=== PATIENT | female | born 1960 | race Caucasian/White ===

== ENCOUNTER 2022-01-20 08:39 | Day surgery (SDC) | payer OTHER ==
[2022-01-20] MEDS ORDERED: Midazolam 1 MG/ML 2 ML SDV ONE (08:51)
[2022-01-20] MEDS ORDERED: fentaNYL 100 MCG/2 ML SDV ONE (08:51)
[2022-01-20] MEDS ORDERED: Propofol 200 MG/20 ML SDV ONE (08:51)
[2022-01-20] MEDS ORDERED: Lactated Ringers 1,000 ML IV SCH (09:00)
== END 2022-01-20 12:08 | disposition home or self-care (01) ==
LOC: JP.SDS 08:39
PROVIDERS: ATTEND Family Medicine
DX: Z12.11 Encounter for screening for malignant neoplasm of colon (principal); Z88.0 Allergy status to penicillin
CPT/HCPCS: 45378; J2250; J2704; J3010; J7120

== ENCOUNTER 2025-03-24 08:26 | Emergency (ER) | payer OTHER ==
[2025-03-24] MEDS: Ondansetron 4 MG/2 ML SDV IVPUSH ONE (10:06)
[2025-03-24 11:31] LABS: A/G RATIO 1.3 (1.2-2.2); ALANINE AMINOTRANSFERASE,ALT 33 U/L (12-78); ASPARTATE AMNIOTRANSFERASE,AST 21 U/L (15-37); BILIRUBIN TOTAL 0.7 mg/dL (0.2-1.0); BLOOD UREA NITROGEN,BUN 18 mg/dL (7-18); CARBON DIOXIDE,CO2 25 mmol/L (21-32); CHLORIDE,CL 110 mmol/L (100-108); CREATININE 0.8 mg/dL (0.6-1.0); EST CRCL DRUG DOSING (CG) 61.35 mL/min; ESTIMATED GFR 82 mL/min (>60); GLUCOSE RANDOM 107 mg/dL (74-106); POTASSIUM,K 3.9 mmol/L (3.6-5.2); PROTEIN TOTAL,TP 6.8 g/dL (6.4-8.2); SODIUM,NA 146 mmol/L (140-148)
== END 2025-03-24 12:57 | disposition home or self-care (01) ==
LOC: JP.ED 08:26
DX: K52.9 Noninfective gastroenteritis and colitis, unspecified (principal); E78.00 Pure hypercholesterolemia, unspecified; Z88.0 Allergy status to penicillin; Z79.899 Other long term (current) drug therapy; Z87.891 Personal history of nicotine dependence
CPT/HCPCS: 36415; 70450; 80053; 83735; 96361; 96374; 99283; 99284; A9270; J2405; J7030